=== PATIENT | female | born 2000 ===

== ENCOUNTER 2020-01-02 01:46 | Emergency (ER) ==
[~2020-01-02] VITALS: Ht 160 cm; Wt 61.4 kg
[2020-01-02] MEDS ORDERED: NORCO 325 MG-51 TAB PO (03:08)
[2020-01-02] MEDS ORDERED: CRUTCHES MC (03:08)
== END 2020-01-02 03:30 | disposition home or self-care (01) ==
LOC: COL.ER 01:46
DX: S93.401A Sprain of unspecified ligament of right ankle, initial encounter (principal); S90.811A Abrasion, right foot, initial encounter; S80.211A Abrasion, right knee, initial encounter; W17.89XA Other fall from one level to another, initial encounter; X50.1XXA Overexertion from prolonged static or awkward postures, initial encounter